=== PATIENT | female | born 1980 | race Two or more races ===

== ENCOUNTER 2017-03-11 13:25 | Emergency (ER) | payer MEDICAID ==
[~2017-03-11] VITALS: Ht 162.6 cm; Wt 77.1 kg
[2017-03-11 13:25] VITALS: BP 125/87
[2017-03-11] MEDS ORDERED: LORazepam 0.5mg tab ORAL ONE (13:45)
--- NOTE | 2017-03-11 14:23 | Emergency Room Report ---
History of Present Illness General Chief Complaint: General Complaint Source: Patient Present Illness HPI 36-year-old female presents to the emergency department complaining of feeling shaky, difficulty catching her breath, numbness and tingling in the hands, and overwhelming feeling of nervousness acute onset at work. Patient states that she has had a small handful of similar episodes in the previous months. Patient reports she has stress with family and difficulty sleeping as she works at nights. Patient denies history of anxiety, psychiatric illnesses, SI/HI. She states she is otherwise healthy with no medical history . Denies . She reports some nausea denies vomiting. Denies abdominal pain, fevers, chills, headaches. Denies significant changes in weight or night sweats. report only family hx is DM. Denies drug use. Denies CP, Palpitations , LOC, AMS, dizziness, Changes in Vision, Sensation, paresthesias, or a sudden severe headache. Allergies: Coded Allergies: No Known Allergies (Unverified , 03/11/17) Patient History Past Medical History: see triage record Past Surgical History: none Pertinent Family History: none Now: No Reviewed Nursing Documentation: PMH: Agreed, PSxH: Agreed Nursing Documentation-PMH Past Medical History: No Stated History Review of Systems All Other Systems: negative except mentioned in HPI Physical Exam Vital Signs Date Time Temp Pulse Resp B/P (MAP) Pulse Ox O2 Delivery O2 Flow Rate FiO2 03/11/17 13:07 99.3 111 16 123/81 100 Room Air Sp02 EP Interpretation: reviewed, normal General Appearance: no apparent distress, alert, GCS 15, non-toxic Head: normocephalic, atraumatic Eyes: bilateral eye normal inspection, bilateral eye PERRL ENT: hearing grossly normal, normal voice Neck: full range of motion, supple/symm/no masses Respiratory: chest non-tender, lungs clear, normal breath sounds, no wheezing, speaking full sentences Cardiovascular #1: regular rate, rhythm, no edema Gastrointestinal: normal bowel sounds, non tender, soft, no guarding, no rebound Rectal: deferred Genitourinary: normal inspection, no CVA tenderness Musculoskeletal: back normal, gait/station normal, normal range of motion, non- tender, no calf tenderness Neurologic: alert, oriented x3, responsive, motor strength/tone normal, sensory intact, speech normal Psychiatric: judgement/insight normal, memory normal, mood/affect normal, no suicidal/homicidal ideation, anxious Skin: normal color, no rash, warm/dry, well hydrated Lymphatic: no adenopathy Medical Decision Making PA Attestation Dr. Louie is my supervising Physician whom patient management has been discussed with. Diagnostic Impression: Primary Impression: Anxiety reaction ER Course 36-year-old female presents to the emergency department complaining of feeling shaky, difficulty catching her breath, numbness and tingling in the hands, and overwhelming feeling of nervousness acute onset at work. Patient states that she has had a small handful of similar episodes in the previous months. Patient reports she has stress with family and difficulty sleeping as she works at nights. Patient denies history of anxiety, psychiatric illnesses, SI/HI. She states she is otherwise healthy with no medical history . Denies . She reports some nausea denies vomiting. Denies abdominal pain, fevers, chills, headaches. Denies significant changes in weight or night sweats. report only family hx is DM. Denies drug use. Denies CP, Palpitations , LOC, AMS, dizziness, Changes in Vision, Sensation, paresthesias, or a sudden severe headache. Ddx considered but are not limited to anxiety, [place], PE, asthma, thyroid storm, intoxication, hypoglycemia, hyperthyroid, EPS just to name a few Vital signs: are WNL, pt. is afebrile, tachy on arrival. , non-tachypneic H&PE are most consistent with anxiety reaction/ hyperventilation - no cardiac RF , not clinically intoxicated. ORDERS: -UA: unremarkable -Urine Hcg: Negative -UDS: negative ED INTERVENTIONS: - 0.5 mg Ativan -PT reports feeling better after rest. d/w pt. lab results. d/w pt. that she is stable for close outpatient follow up and I gave her a list of primary care clinics , and [facility] resource information. -D/w pt. that she needs to follow up with her PCP for further eval if symptoms persist may need daily medication management, but pcp/psychiatric eval is required for this. d/w pt. to promptly return to the ED with worsening or new symptoms. DISCHARGE: At this time pt. is stable for d/c to home. Will provide printed patient care instructions, and any necessary prescriptions. Care plan and follow up instructions have been discussed with the patient prior to discharge. Labs Test 03/11/17 14:25 Urine Color Yellow Urine Appearance Clear Urine pH 5 (4.5-8.0) Urine Specific [place] 1.025 (1.005-1.035) Urine Protein 1+ (NEGATIVE) Urine Glucose (UA) Negative (NEGATIVE) Urine Ketones 3+ (NEGATIVE) Urine Occult Blood 1+ (NEGATIVE) Urine Nitrite Negative (NEGATIVE) Urine Bilirubin Negative (NEGATIVE) Urine Urobilinogen Normal MG/DL (0.0-1.0) Urine Leukocyte Esterase 1+ (NEGATIVE) Urine RBC 0-2 /HPF (0 - 2) Urine WBC 2-4 /HPF (0 - 2) Urine Squamous Epithelial Cells Few /LPF (NONE/OCC) Urine Amorphous Sediment Few /LPF (NONE) Urine Bacteria Few /HPF (NONE) Urine Mucus Many /LPF (NONE/OCC) Urine HCG, Qualitative Negative Urine Opiates Screen Negative (NEGATIVE) Urine Barbiturates Screen Negative (NEGATIVE) Phencyclidine (PCP) Screen Negative (NEGATIVE) Urine Amphetamines Screen Negative (NEGATIVE) Urine Benzodiazepines Screen Negative (NEGATIVE) Urine Cocaine Screen Negative (NEGATIVE) Urine Marijuana (THC) Screen Negative (NEGATIVE) Last Vital Signs Date Time Temp Pulse Resp B/P (MAP) Pulse Ox O2 Delivery O2 Flow Rate FiO2 03/11/17 13:25 99.3 18 125/87 100 Room Air 03/11/17 13:07 111 Disposition: HOME, SELF-CARE Condition: Stable Scripts Buspirone Hcl* (BUSPAR*) 10 Mg Tablet 10 MG ORAL BID for 7 Days, #15 TAB 0 Refills Prov: Nalini Vergara 03/11/17 Patient Instructions: Generalized Anxiety Disorder Additional Instructions: Take medications as directed. Follow up with a Primary Care Provider in 3-5 days, even if your symptoms have resolved. --Please review list of primary care clinics, if you do not already have a primary care provider Return sooner to ED if new symptoms occur, or current symptoms become worse. - Please note that this Emergency Department Report was dictated using Bloom[employer]force services representative technology software, occasionally this can lead to erroneous entry secondary to interpretation by the dictation equipment. Nalini Vergara Mar 11, 2017 14:23
[2017-03-11 14:35] LABS: APPEARANCE,URINE CLEAR; KETONES,URINE 3+ (NEGATIVE); LEUKOCYTE ESTERASE ,URINE 1+ (NEGATIVE); NITRITE,URINE NEGATIVE (NEGATIVE); PH,URINE 5 (4.5-8.0); PROTEIN,URINE 1+ (NEGATIVE); UROBILINOGEN,URINE NORMAL MG/DL (0.0-1.0)
[2017-03-11 14:44] LABS: AMORPHOUS SEDIMENT,UR FEW /LPF; BACTERIA,URINE FEW /HPF; MUCUS,URINE MANY /LPF (NONE/OCC); RBC,URINE 0-2 /HPF (0 - 2); SQUAMOUS EPITHELIAL CELL,UR FEW /LPF (NONE/OCC)
[2017-03-11 15:10] VITALS: BP 108/70
[2017-03-11] MEDS ORDERED: BUSPAR10 MG ORAL (15:16)
[2017-03-11 15:30] VITALS: BP 108/70
== END 2017-03-11 15:30 | disposition home or self-care (01) ==
LOC: EDBD 13:25 → EMR 13:57
DX: F41.1 Generalized anxiety disorder (principal)
CPT/HCPCS: 80307; 81003; 81025; 99283

== ENCOUNTER 2017-03-16 12:00 | Emergency (ER) | payer MEDICAID ==
[~2017-03-16] VITALS: Ht 160 cm; Wt 68.0 kg
[~2017-03-16 12:00] MED LIST: BUSPAR10 MG ORAL
[2017-03-16 12:25] VITALS: BP 133/86
--- NOTE | 2017-03-16 12:37 | Emergency Room Report ---
Physical Exam Vital Signs Date Time Temp Pulse Resp B/P (MAP) Pulse Ox O2 Delivery O2 Flow Rate FiO2 03/16/17 12:04 98.4 70 18 133/86 97 Room Air Medical Decision Making Last Vital Signs Date Time Temp Pulse Resp B/P (MAP) Pulse Ox O2 Delivery O2 Flow Rate FiO2 03/16/17 12:04 98.4 70 18 133/86 97 Room Air Nalini Vergara Mar 16, 2017 12:37
--- NOTE | 2017-03-16 12:39 | Emergency Room Report ---
History of Present Illness General Chief Complaint: General Complaint Source: Patient Present Illness HPI 36-year-old female presents to the emergency department complaining of continued anxiety symptoms with excessive worries about her daughter and has not had much response from previously prescribed BuSpar. Patient states she did not followup at [facility]. Patient denies hallucinations, delusions, fevers, chills, hearing voices. She presents with sister who is worried about her excessive worries that has progressed over the course of several weeks. denies open wounds or bleeding. pt. reports excessive worry is primary symptoms and has only mild sadness, reports some anhedonia, but primarily an overwhelming feeling that something bad is going to happen to her daughter when she leaves for school each day. She denies traumatic event denies drug use. Denies SI or HI. Allergies: Coded Allergies: No Known Allergies (Unverified , 03/11/17) Patient History Past Medical History: see triage record Past Surgical History: none Pertinent Family History: none Now: No Reviewed Nursing Documentation: PMH: Agreed, PSxH: Agreed Nursing Documentation-PMH Past Medical History: No Stated History Review of Systems All Other Systems: negative except mentioned in HPI Physical Exam Vital Signs Date Time Temp Pulse Resp B/P (MAP) Pulse Ox O2 Delivery O2 Flow Rate FiO2 03/16/17 12:04 98.4 70 18 133/86 97 Room Air Sp02 EP Interpretation: reviewed, normal General Appearance: no apparent distress, alert, GCS 15, non-toxic Head: normocephalic, atraumatic Eyes: bilateral eye normal inspection, bilateral eye PERRL ENT: hearing grossly normal, normal voice Neck: full range of motion Respiratory: lungs clear, normal breath sounds, speaking full sentences Cardiovascular #1: regular rate, rhythm Musculoskeletal: back normal, gait/station normal, normal range of motion Neurologic: alert, oriented x3, responsive, motor strength/tone normal, sensory intact, normal gait, speech normal Psychiatric: judgement/insight normal, memory normal, mood/affect normal, no suicidal/homicidal ideation, no delusions, anxious Skin: normal color, no rash, warm/dry, well hydrated Medical Decision Making PA Attestation Dr. salas is my supervising Physician whom patient management has been discussed with. Diagnostic Impression: Primary Impression: Anxiety ER Course 36-year-old female presents to the emergency department complaining of continued anxiety symptoms with excessive worries about her daughter and has not had much response from previously prescribed BuSpar. Patient states she did not followup at [facility]. Patient denies hallucinations, delusions, fevers, chills, hearing voices. She presents with sister who is worried about her excessive worries that has progressed over the course of several weeks. denies open wounds or bleeding. pt. reports excessive worry is primary symptoms and has only mild sadness, reports some anhedonia, but primarily an overwhelming feeling that something bad is going to happen to her daughter when she leaves for school each day. She denies traumatic event denies drug use. Denies SI or HI. Ddx considered but are not limited to anxiety, [place], PE, asthma, thyroid storm, hyperthyroid, EPS Vital signs: are WNL, pt. is afebrile H&PE are most consistent with anxiety attack ORDERS: none required at this time, the diagnosis is clinical ED INTERVENTIONS: - 0.5 mg Ativan -Discussed with both patient and sister who is responsible democrat that [facility] is highly encouraged 4 continue medication management and starting patient on daily preventive medication such as SSRIs in addition to psychotherapy. She is not a danger to herself or others at this time she is not exhibiting any symptoms of acute psychosis. And is stable for close outpatient psychiatric followup DISCHARGE: At this time pt. is stable for d/c to home. Will provide printed patient care instructions, and any necessary prescriptions. Care plan and follow up instructions have been discussed with the patient prior to discharge. Last Vital Signs Date Time Temp Pulse Resp B/P (MAP) Pulse Ox O2 Delivery O2 Flow Rate FiO2 03/16/17 12:04 98.4 70 18 133/86 97 Room Air Disposition: HOME, SELF-CARE Condition: Stable Scripts Lorazepam* (ATIVAN*) 0.5 Mg Tablet 0.5 MG ORAL Q8HR for For Anxiety, #9 TAB Prov: Nalini Vergara 03/16/17 Patient Instructions: Generalized Anxiety Disorder Additional Instructions: Take medications as directed. Follow up with a PSYCHIATRIST ( [facility]), even if your symptoms have resolved. Return sooner to ED if new symptoms occur, or current symptoms become worse. Do not drink alcohol, drive, or operate heavy machinery while taking Ativan as this may cause drowsiness. - Please note that this Emergency Department Report was dictated using Jenn Rykertoracle database consultant technology software, occasionally this can lead to erroneous entry secondary to interpretation by the dictation equipment. Nalini Vergara Mar 16, 2017 12:39
--- NOTE | 2017-03-16 12:39 | Emergency Room Report ---
History of Present Illness General Chief Complaint: General Complaint Source: Patient Present Illness HPI 36-year-old female presents to the emergency department complaining of continued anxiety symptoms with excessive worries about her daughter and has not had much response from previously prescribed BuSpar. Patient states she did not followup at [facility]. Patient denies hallucinations, delusions, fevers, chills, hearing voices. She presents with sister who is worried about her excessive worries that has progressed over the course of several weeks. denies open wounds or bleeding. pt. reports excessive worry is primary symptoms and has only mild sadness, reports some anhedonia, but primarily an overwhelming feeling that something bad is going to happen to her daughter when she leaves for school each day. She denies traumatic event denies drug use. Denies SI or HI. Allergies: Coded Allergies: No Known Allergies (Unverified , 03/11/17) Patient History Past Medical History: see triage record Past Surgical History: none Pertinent Family History: none Now: No Reviewed Nursing Documentation: PMH: Agreed, PSxH: Agreed Nursing Documentation-PMH Past Medical History: No Stated History Review of Systems All Other Systems: negative except mentioned in HPI Physical Exam Vital Signs Date Time Temp Pulse Resp B/P (MAP) Pulse Ox O2 Delivery O2 Flow Rate FiO2 03/16/17 12:04 98.4 70 18 133/86 97 Room Air Sp02 EP Interpretation: reviewed, normal General Appearance: no apparent distress, alert, GCS 15, non-toxic Head: normocephalic, atraumatic Eyes: bilateral eye normal inspection, bilateral eye PERRL ENT: hearing grossly normal, normal voice Neck: full range of motion Respiratory: lungs clear, normal breath sounds, speaking full sentences Cardiovascular #1: regular rate, rhythm Musculoskeletal: back normal, gait/station normal, normal range of motion Neurologic: alert, oriented x3, responsive, motor strength/tone normal, sensory intact, normal gait, speech normal Psychiatric: judgement/insight normal, memory normal, mood/affect normal, no suicidal/homicidal ideation, no delusions, anxious Skin: normal color, no rash, warm/dry, well hydrated Medical Decision Making PA Attestation Dr. salas is my supervising Physician whom patient management has been discussed with. Diagnostic Impression: Primary Impression: Anxiety ER Course 36-year-old female presents to the emergency department complaining of continued anxiety symptoms with excessive worries about her daughter and has not had much response from previously prescribed BuSpar. Patient states she did not followup at [facility]. Patient denies hallucinations, delusions, fevers, chills, hearing voices. She presents with sister who is worried about her excessive worries that has progressed over the course of several weeks. denies open wounds or bleeding. pt. reports excessive worry is primary symptoms and has only mild sadness, reports some anhedonia, but primarily an overwhelming feeling that something bad is going to happen to her daughter when she leaves for school each day. She denies traumatic event denies drug use. Denies SI or HI. Ddx considered but are not limited to anxiety, [place], PE, asthma, thyroid storm, hyperthyroid, EPS Vital signs: are WNL, pt. is afebrile H&PE are most consistent with anxiety attack ORDERS: none required at this time, the diagnosis is clinical ED INTERVENTIONS: - 0.5 mg Ativan -Discussed with both patient and sister who is responsible constitution party that [facility] is highly encouraged 4 continue medication management and starting patient on daily preventive medication such as SSRIs in addition to psychotherapy. She is not a danger to herself or others at this time she is not exhibiting any symptoms of acute psychosis. And is stable for close outpatient psychiatric followup DISCHARGE: At this time pt. is stable for d/c to home. Will provide printed patient care instructions, and any necessary prescriptions. Care plan and follow up instructions have been discussed with the patient prior to discharge. Last Vital Signs Date Time Temp Pulse Resp B/P (MAP) Pulse Ox O2 Delivery O2 Flow Rate FiO2 03/16/17 12:04 98.4 70 18 133/86 97 Room Air Disposition: HOME, SELF-CARE Condition: Stable Scripts Lorazepam* (ATIVAN*) 0.5 Mg Tablet 0.5 MG ORAL Q8HR for For Anxiety, #9 TAB Prov: Nalini Vergara 03/16/17 Patient Instructions: Generalized Anxiety Disorder Additional Instructions: Take medications as directed. Follow up with a PSYCHIATRIST ( [facility]), even if your symptoms have resolved. Return sooner to ED if new symptoms occur, or current symptoms become worse. Do not drink alcohol, drive, or operate heavy machinery while taking Ativan as this may cause drowsiness. - Please note that this Emergency Department Report was dictated using Extended Stay Americasonar technician technology software, occasionally this can lead to erroneous entry secondary to interpretation by the dictation equipment. Nalini Vergara Mar 16, 2017 12:39
--- NOTE | 2017-03-16 12:39 | Emergency Room Report ---
History of Present Illness General Chief Complaint: General Complaint Source: Patient Present Illness HPI 36-year-old female presents to the emergency department complaining of continued anxiety symptoms with excessive worries about her daughter and has not had much response from previously prescribed BuSpar. Patient states she did not followup at . Patient denies hallucinations, delusions, fevers, chills, hearing voices. She presents with sister who is worried about her excessive worries that has progressed over the course of several weeks. denies open wounds or bleeding. pt. reports excessive worry is primary symptoms and has only mild sadness, reports some anhedonia, but primarily an overwhelming feeling that something bad is going to happen to her daughter when she leaves for school each day. She denies traumatic event denies drug use. Denies SI or HI. Allergies: Coded Allergies: No Known Allergies (Unverified , 03/11/17) Patient History Past Medical History: see triage record Past Surgical History: none Pertinent Family History: none Now: No Reviewed Nursing Documentation: PMH: Agreed, PSxH: Agreed Nursing Documentation-PMH Past Medical History: No Stated History Review of Systems All Other Systems: negative except mentioned in HPI Physical Exam Vital Signs Date Time Temp Pulse Resp B/P (MAP) Pulse Ox O2 Delivery O2 Flow Rate FiO2 03/16/17 12:04 98.4 70 18 133/86 97 Room Air Sp02 EP Interpretation: reviewed, normal General Appearance: no apparent distress, alert, GCS 15, non-toxic Head: normocephalic, atraumatic Eyes: bilateral eye normal inspection, bilateral eye PERRL ENT: hearing grossly normal, normal voice Neck: full range of motion Respiratory: lungs clear, normal breath sounds, speaking full sentences Cardiovascular #1: regular rate, rhythm Musculoskeletal: back normal, gait/station normal, normal range of motion Neurologic: alert, oriented x3, responsive, motor strength/tone normal, sensory intact, normal gait, speech normal Psychiatric: judgement/insight normal, memory normal, mood/affect normal, no suicidal/homicidal ideation, no delusions, anxious Skin: normal color, no rash, warm/dry, well hydrated Medical Decision Making PA Attestation Dr. salas is my supervising Physician whom patient management has been discussed with. Diagnostic Impression: Primary Impression: Anxiety ER Course 36-year-old female presents to the emergency department complaining of continued anxiety symptoms with excessive worries about her daughter and has not had much response from previously prescribed BuSpar. Patient states she did not followup at . Patient denies hallucinations, delusions, fevers, chills, hearing voices. She presents with sister who is worried about her excessive worries that has progressed over the course of several weeks. denies open wounds or bleeding. pt. reports excessive worry is primary symptoms and has only mild sadness, reports some anhedonia, but primarily an overwhelming feeling that something bad is going to happen to her daughter when she leaves for school each day. She denies traumatic event denies drug use. Denies SI or HI. Ddx considered but are not limited to anxiety, [place], PE, asthma, thyroid storm, hyperthyroid, EPS Vital signs: are WNL, pt. is afebrile H&PE are most consistent with anxiety attack ORDERS: none required at this time, the diagnosis is clinical ED INTERVENTIONS: - 0.5 mg Ativan -Discussed with both patient and sister who is responsible libertarian that [facility] is highly encouraged 4 continue medication management and starting patient on daily preventive medication such as SSRIs in addition to psychotherapy. She is not a danger to herself or others at this time she is not exhibiting any symptoms of acute psychosis. And is stable for close outpatient psychiatric followup DISCHARGE: At this time pt. is stable for d/c to home. Will provide printed patient care instructions, and any necessary prescriptions. Care plan and follow up instructions have been discussed with the patient prior to discharge. Last Vital Signs Date Time Temp Pulse Resp B/P (MAP) Pulse Ox O2 Delivery O2 Flow Rate FiO2 03/16/17 12:04 98.4 70 18 133/86 97 Room Air Disposition: HOME, SELF-CARE Condition: Stable Scripts Lorazepam* (ATIVAN*) 0.5 Mg Tablet 0.5 MG ORAL Q8HR for For Anxiety, #9 TAB Prov: Nalini Vergara 03/16/17 Patient Instructions: Generalized Anxiety Disorder Additional Instructions: Take medications as directed. Follow up with a PSYCHIATRIST ( [facility]), even if your symptoms have resolved. Return sooner to ED if new symptoms occur, or current symptoms become worse. Do not drink alcohol, drive, or operate heavy machinery while taking Ativan as this may cause drowsiness. - Please note that this Emergency Department Report was dictated using SOL REPUBLICprobation and parole officer technology software, occasionally this can lead to erroneous entry secondary to interpretation by the dictation equipment. Nalini Vergara Mar 16, 2017 12:39
[2017-03-16] MEDS ORDERED: ATIVAN0.5 MG ORAL (12:40)
[2017-03-16] MEDS ORDERED: LORazepam 0.5mg tab ORAL ONE (12:45)
[2017-03-16 12:50] VITALS: BP 133/86
== END 2017-03-16 12:50 | disposition home or self-care (01) ==
LOC: EMR 12:32
DX: F41.9 Anxiety disorder, unspecified (principal)
CPT/HCPCS: 99283